=== PATIENT | female | born 1990 | race Caucasian/White ===

== ENCOUNTER 2017-04-21 00:57 | Inpatient (IN) | payer OTHER ==
[~2017-04-21] VITALS: Ht 162.6 cm; Wt 124.7 kg
[2017-04-21 03:30] VITALS: BP 138/86; PULSE 50; RESP 18; Ht 162.6 cm; Wt 124.7 kg
[2017-04-21] MEDS ORDERED: ONDANSETRON 4 MG INJ IV PRN ×2 (04:30→10:00)
[2017-04-21] MEDS: SOD CHLORIDE 0.45% 1,000 ML IV SCH ×2 (04:47→15:47)
[2017-04-21 06:50] LABS: ADD SCAN DIFF NO; BASOPHILS % 0.5 % (0.0-2.0); EOSINOPHILS # 0.3 10^3/ul (0.0-0.5); EOSINOPHILS % 3.7 % (0.0-7.0); HEMATOCRIT 37.5 % (37.0-47.0); HEMOGLOBIN 11.7 g/dl (12.0-16.0); LYMPHOCYTES # 1.7 10^3/ul (0.8-2.9); LYMPHOCYTES % 22.3 % (15.0-51.0); MEAN CORPUSCULAR HEMOGLOBIN 25.5 pg (29.0-33.0); MEAN CORPUSCULAR HGB CONC 31.2 g/dl (32.0-37.0); MEAN CORPUSCULAR VOLUME 81.9 fl (82.0-101.0); MEAN PLATELET VOLUME 10.5 fl (7.4-10.4); MONOCYTE # 0.5 10^3/ul (0.3-0.9); MONOCYTES % 6.7 % (0.0-11.0); NEUTROPHIL # 5.1 10^3/ul (1.6-7.5); NEUTROPHILS % 66.4 % (39.0-77.0); PLATELET COUNT 284 10^3/UL (140-415); RED BLOOD COUNT 4.58 10^6/ul (4.20-5.40); RED CELL DISTRIBUTION WIDTH 16.8 % (11.5-14.5); WHITE BLOOD COUNT 7.6 10^3/ul (4.8-10.8)
[2017-04-21 07:26] LABS: ALBUMIN 4.5 g/dl (3.3-4.9); ALBUMIN/GLOBULIN RATIO 1.55; BILIRUBIN,INDIRECT 1.1 mg/dl (0-1.1); BILIRUBIN,TOTAL 1.1 mg/dl (0.2-1.3); CALCIUM 8.9 mg/dl (8.4-10.2); CREATININE 0.73 mg/dl (0.44-1.00); POTASSIUM 3.6 mmol/L (3.5-5.1); TOTAL PROTEIN 7.4 g/dl (6.1-8.1)
[2017-04-21] MEDS ORDERED: BISACODYL 10 MG SUPP PR PRN (10:00)
[2017-04-21] MEDS ORDERED: DOCUSATE SODIUM 100 MG CAP PO PRN (10:00)
[2017-04-21] MEDS ORDERED: MAGNESIUM HYDROXIDE 30ML CUP PO PRN (10:00)
[2017-04-21] MEDS ORDERED: HYDROCODONE/APAP (5/325) TAB PO PRN ×2 (10:00)
[2017-04-21] MEDS ORDERED: ACETAMINOPHEN 325 MG TAB PO PRN (10:00)
[2017-04-21] MEDS ORDERED: ACETAMINOPHEN 650 MG SUPP PR PRN (10:00)
[2017-04-21] MEDS ORDERED: NACL 0.9% 3 ML SYG IV SCH (10:00)
--- NOTE | 2017-04-21 10:40 | HP ---
Date/Time of Note Date/Time of Note DATE: 04/21/17 TIME: 10:32 Assessment/Plan VTE Prophylaxis VTE Prophylaxis Intervention: SCD's Lines/Catheters IV C[facility]ter Type (from [facility]): Peripheral IV Urinary Cath still in place: No Assessment/Plan Chief Complaint/Hosp Course Impression and plan 1. Abdominal pain secondary to cholelithiasis and suspect choledocholithiasis. Will follow up on MRCP. Will start on IV fluids and keep n.p.o. for now. Will provide with analgesics. Antiemetics will also be provided for nausea/ vomiting. Surgeon to follow 2. Morbid obesity. Weight reduction was advised 3. Anemia. Follow-up on iron panel 4. Transaminitis secondary to #1. We will follow-up on MRCP or. Will get surgeon as well as design release engineer to follow DVT prophylaxis: SCDs Admission process 40 minutes Discussed plan of care with Dr. Ren Problems: HPI/ROS Admit Date/Time Admit Date/Time Apr 21, 2017 at 03:33 Hx of Present Illness This is a 27-year-old female with no reported past medical history came [facility] from outside facility secondary to reported abdominal pain. Patient did report that she been having abdominal pain roughly since April 16, 2017. She did report that she started to have intermittent pain then more notable on epigastric area. She did report that it would be intermittent and will go away and was able to tolerate oral intake. Progressively her pain got worse and subsequently went to [facility] on [facility], 2017. She did have initial labs there that did show her to have some anemia with hemoglobin of 12.4 hematocrit of 37.8. Additionally she also had a white blood cell count of 10.4. Additionally she also had some transaminitis with alk phos at 222 and AST of 399 and ALT at 662. Abdominal imaging also showed some cholelithiasis mild dilation of the common bile duct. Patient was brought to [facility] due to insurance issue. She did report having associated nonbilious nonbloody emesis starting since April 19, 2017 that would be intermittent. She reports her symptoms increased 1 day prior to her admission at [facility]. She denies any chest pain or shortness of breath or any sick contacts or any other associated symptoms. She will reports having pain on epigastric area as well as some nausea for out of 10 in intensity nonradiating. We will evaluate her for the aformentiond issues t ROS 12 point review of systems obtained and entirely negative except that mentioned in history of present illness PMH/Family/Social Past Medical History Medical History: no pertinent history Family History Significant Family History: other (Father: Diabetes, mother: Hypertension) Social History Alcohol Use: none Smoking Status: Never smoker Drug Use: none Exam/Review of Systems Vital Signs Vitals Vital Signs Date Time Temp Pulse Resp B/P Pulse Ox O2 Delivery O2 Flow Rate FiO2 04/21/17 03:30 97.6 50 18 138/86 98 Room Air Intake and Output 04/20/17 04/20/17 04/21/17 15:00 23:00 07:00 Intake Total 100 ml Balance 100 ml Exam Constitutional: alert, oriented, other (Morbidly obese) Psych: nl mood/affect Head: normocephalic Neck: supple, No jvd Respiratory: clear to auscultation, normal air movement Cardiovascular: regular rate and rhythm Gastrointestinal: soft, tender Neurological: FRUIT CANNER II-XII intact, nl mental status Skin: nl turgor Labs Result Diagram: 04/21/17 0458 04/21/17 0420 Medications Medications Current Medications Morphine Sulfate 2 mg 2 mg Q3H PRN IV pain management; Start 04/21/17 at 04:30 Sodium Chloride (1/2 NS) 1,000 ml @ 100 mls/hr Q10H IV Last administered on t 04:47; Admin Dose 100 MLS/HR; Start 04/21/17 at 04:30 Ondansetron HCl (Zofran Inj) 4 mg Q6H PRN IV NAUSEA AND/OR VOMITING; Start at 10:00 Acetaminophen (Tylenol Tab) 650 mg Q6H PRN PO PAIN LEVEL 1-3 OR FEVER; Start at 10:00 Acetaminophen (Tylenol Supp) 650 mg Q6H PRN [place] PAIN LEVEL 1-3 OR FEVER; Start 04/21/17 at 10:00 Acetaminophen/ Hydrocodone Bitart ([place] (5/325)) 1 tab Q6H PRN PO MODERATE PAIN LEVEL 4-6; Start 04/21/17 at 10:00 Acetaminophen/ Hydrocodone Bitart ([place] (5/325)) 2 tab Q6H PRN PO SEVERE PAIN LEVEL 7-10; Start 04/21/17 at 10:00 Docusate Sodium (Colace) 100 mg Q12H PRN PO CONSTIPATION; Start 04/21/17 at 10: 00 Magnesium Hydroxide (Milk Of Mag) 30 ml DAILY PRN PO CONSTIPATION; Start at 10:00 Bisacodyl (Dulcolax Supp) 10 mg DAILY PRN [place] CONSTIPATION; Start 04/21/17 at 10 :00 Pantoprazole (Protonix Iv) 40 mg DAILY@06 IV ; Start 04/22/17 at 06:00 BRENDA LAZAR Apr 21, 2017 10:40
--- NOTE | 2017-04-21 12:14 | HP ---
DATE OF ADMISSION: 04/21/2017 TYPE OF CONSULTATION: Surgical. REASON FOR CONSULTATION: Cholelithiasis and choledocholithiasis. HISTORY OF PRESENT ILLNESS: The patient is a 27-year-old female who is morbidly obese. She was see n at [place] yesterday because of abdominal pain. She was found to have gallstones with ultrasou nd showing dilatation of common bile duct. She had elevation of transaminases and alkaline phosphat ase at 222. She was transferred here for insurance reasons. I have been asked to see her in consul tation. An MRCP for this patient is pending. REVIEW OF SYSTEMS: HEAD, EYES, EARS, NOSE AND THROAT: Unremarkable. PULMONARY: No history of pneumonia, asthma or shortness of breath. CARDIAC: No history of chest pain, [place] or arrhythmia. ABDOMEN: Morbid obesity and as in the HPI. MEDICATIONS: None. ALLERGIES: NONE. PHYSICAL EXAMINATION: GENERAL: The patient is a 27-year-old female who is awake and alert, in no acute distress. HEAD, EARS, EYES, NOSE, THROAT: Within normal limits. Sclerae anicteric. LUNGS: Clear. HEART: Regular rhythm. ABDOMEN: Strikingly obese with slight tenderness in the epigastrium. LABORATORY DATA: The patient's hematocrit is 37.5 with a white count of 7600. Bilirubin is 1.1, T 295, ALT 628, alkaline phosphatase 202. IMPRESSION: This patient has cholelithiasis and likely choledocholithiasis. MRCP for this patient is pending as well as GI consultation. Further recommendations on this patient will be forthcoming based on the results of her further workup and clinical course. I will follow with you. Dictated By: ALFONSO GRAVES/MIKAELA Conf#: [id number] DID#: [id number]
[2017-04-21 14:22] LABS: ADD UMIC YES; UR ASCORBIC ACID NEGATIVE (NEGATIVE); UR BACTERIA FEW /HPF (NONE SEEN); UR BILIRUBIN (Dip) NEGATIVE (NEGATIVE); UR BLOOD (Dip) 1+ mg/dL (NEGATIVE); UR CLARITY CLEAR (CLEAR); UR COLOR YELLOW (YELLOW); UR GLUCOSE (Dip) NEGATIVE (NEGATIVE); UR KETONES (Dip) NEGATIVE (NEGATIVE); UR LEUKOCYTE ESTERASE (Dip) NEGATIVE Leu/ul (NEGATIVE); UR MUCUS FEW /HPF (NONE SEEN); UR NITRITE (Dip) NEGATIVE (NEGATIVE); UR RBC 1 /HPF (0-5); UR SPECIFIC GRAVITY (Dip) 1.017 (1.003-1.030); UR SQUAMOUS EPITHELIAL CELL FEW /HPF (FEW); UR TOTAL PROTEIN (Dip) NEGATIVE (NEGATIVE); UR UROBILINOGEN (Dip) NEGATIVE (NEGATIVE)
--- NOTE | 2017-04-21 16:48 | RADRPT ---
PROCEDURE: MRCP. CLINICAL INDICATION: Right upper quadrant pain. Suspected choledocholithiasis. TECHNIQUE: MRCP was performed on the a high-resolution, high Jewels field strength scanner. Patien t was examined without contrast. 3-D coronal rotating MIP images of the biliary tree are available for review. COMPARISON: None available FINDINGS: Gallbladder is remarkable for multiple large and small gallstones. There are no pericholecystic inf lammatory changes. There is no intrahepatic biliary ductal dilatation. Common bile duct is mildly d ilated measures up to 5 mm. There is abrupt tapering of the distal common bile duct. There are a fe w sub centimeter hypointensities in the distal CBD suggestive of choledocholithiasis. There is no st ricture or obstruction. The pancreatic duct, as visualized, is equally unremarkable. IMPRESSION: 1. Mild prominence of CBD measures up to 5 mm with a few sub centimeter choledocholithiasis. 2. Multiple large and small gallstones. No pericholecystic inflammatory changes. RPTAT: BB .Saw Cason MD, Date Time Electronically viewed and signed by .Saw Cason MD, on 04/21/2017 16:47 .O/
--- NOTE | 2017-04-21 19:41 | CONS ---
Date/Time of Note Date/Time of Note DATE: 04/21/17 TIME: 19:37 Assessment/Plan Assessment/Plan Additional Assessment/Plan Assessment: * Cholelithiasis/choledocholithiasis * Morbid obesity * Mild anemia Plan: * ERCP with stone removal. Patient informed of risks, benefits and alternatives. Agreeable to proceed. Consultation Date/Type/Reason Admit Date/Time Apr 21, 2017 at 03:33 Date of Consultation: Apr 21, 2017 Type of Consultation: GI Reason for Consultation Choledocholithiasis Hx of Present Illness 27-year-old morbidly obese female presented with complaints of epigastric right upper quadrant abdominal pain. Evaluation has disclosed evidence of cholelithiasis and choledocholithiasis. The patient has been seen by surgery and advised to undergo cholecystectomy. Patient will require ERCP to clear biliary tree prior to cholecystectomy. ERCP with sphincterotomy and stone removal was explained to the patient and her family including risks, benefits and alternatives. The patient is agreeable to proceed. Constitutional: improved, no complaints Eyes: no complaints ENT: no complaints Respiratory: no complaints Cardiovascular: no complaints Gastrointestinal: nausea, pain (Right upper quadrant) Genitourinary: no complaints Musculoskeletal: no complaints Skin: no complaints Neurologic: no complaints Endocrine: no complaints Lymphatic: no complaints Psychological: nl mood/affect Immunologic: no complaints Past Medical History Medical History: no pertinent history Past Surgical History Past Surgical Hx: no surgical history Family History Significant Family History: no pertinent family hx Social History Alcohol Use: none Smoking Status: Never smoker Drug Use: none Exam/Review of Systems Vital Signs Vitals Vital Signs Date Time Temp Pulse Resp B/P Pulse Ox O2 Delivery O2 Flow Rate FiO2 04/21/17 03:30 97.6 50 18 138/86 98 Room Air Intake and Output 04/20/17 04/20/17 04/21/17 15:00 23:00 07:00 Intake Total 100 ml Balance 100 ml Exam Constitutional: alert, obese (Morbidly obese), oriented, well developed Psych: nl mood/affect, no complaints Head: atraumatic, normocephalic Eyes: EOMI, PERRL, nl conjunctiva, nl lids, nl sclera ENMT: nl external ears & nose, nl lips & teeth, nl nasal mucosa & septum Neck: non-tender, supple Respiratory: clear to auscultation, normal air movement Cardiovascular: nl pulses, regular rate and rhythm Gastrointestinal: bowel sounds, distended, nl liver, spleen, soft, tender ( Right upper quadrant), No ascites, No hepatomegaly, No mass, No rebound or guarding Musculoskeletal: nl extremities to inspection Extremities: normal pulses Skin: nl turgor, No rash or lesions Lymph: nl lymph nodes Results Result Diagram: 04/21/17 0458 04/21/17 0420 Results 24 hrs Laboratory Tests Test 04/21/17 04:20 04/21/17 04:58 04/21/17 07:42 Sodium Level 139 Potassium Level 3.6 Chloride Level 103 Carbon Dioxide Level 28 Anion Gap 12 Blood Urea Nitrogen 9 Creatinine 0.73 Glucose Level 97 Calcium Level 8.9 Total Bilirubin 1.1 Direct Bilirubin 0.00 Indirect Bilirubin 1.1 Aspartate Amino Transf (AST/SGOT) 295 H Alanine Aminotransferase (ALT/SGPT) 628 H Alkaline Phosphatase 202 H Total Protein 7.4 Albumin 4.5 Globulin 2.90 Albumin/Globulin Ratio 1.55 White Blood Count 7.6 Red Blood Count 4.58 Hemoglobin 11.7 L Hematocrit 37.5 Mean Corpuscular Volume 81.9 L Mean Corpuscular Hemoglobin 25.5 L Mean Corpuscular Hemoglobin Concent 31.2 L Red Cell Distribution Width 16.8 H Platelet Count 284 Mean Platelet Volume 10.5 H Neutrophils % 66.4 Lymphocytes % 22.3 Monocytes % 6.7 Eosinophils % 3.7 Basophils % 0.5 Nucleated Red Blood Cells % 0.0 Neutrophils # 5.1 Lymphocytes # 1.7 Monocytes # 0.5 Eosinophils # 0.3 Basophils # 0.0 Nucleated Red Blood Cells # 0.0 Urine Color YELLOW Urine Clarity CLEAR Urine pH 5.0 Urine Specific [place] 1.017 Urine Ketones NEGATIVE Urine Nitrite NEGATIVE Urine Bilirubin NEGATIVE Urine Urobilinogen NEGATIVE Urine Leukocyte Esterase NEGATIVE Urine Microscopic RBC 1 Urine Microscopic WBC 9 H Urine Squamous Epithelial Cells FEW Urine Bacteria FEW A Urine Mucus FEW A Urine Hemoglobin 1+ H Urine Glucose NEGATIVE Urine Total Protein NEGATIVE Medications Medications Current Medications Morphine Sulfate 2 mg 2 mg Q3H PRN IV pain management; Start 04/21/17 at 04:30 Sodium Chloride (1/2 NS) 1,000 ml @ 100 mls/hr Q10H IV Last administered on t 15:47; Admin Dose 100 MLS/HR; Start 04/21/17 at 04:30 Ondansetron HCl (Zofran Inj) 4 mg Q6H PRN IV NAUSEA AND/OR VOMITING; Start at 10:00 Acetaminophen (Tylenol Tab) 650 mg Q6H PRN PO PAIN LEVEL 1-3 OR FEVER; Start at 10:00 Acetaminophen (Tylenol Supp) 650 mg Q6H PRN [place] PAIN LEVEL 1-3 OR FEVER; Start 04/21/17 at 10:00 Acetaminophen/ Hydrocodone Bitart ([place] (5/325)) 1 tab Q6H PRN PO MODERATE PAIN LEVEL 4-6; Start 04/21/17 at 10:00 Acetaminophen/ Hydrocodone Bitart ([place] (5/325)) 2 tab Q6H PRN PO SEVERE PAIN LEVEL 7-10; Start 04/21/17 at 10:00 Docusate Sodium (Colace) 100 mg Q12H PRN PO CONSTIPATION; Start 04/21/17 at 10: 00 Magnesium Hydroxide (Milk Of Mag) 30 ml DAILY PRN PO CONSTIPATION; Start at 10:00 Bisacodyl (Dulcolax Supp) 10 mg DAILY PRN [place] CONSTIPATION; Start 04/21/17 at 10 :00 Pantoprazole (Protonix Iv) 40 mg DAILY@06 IV ; Start 04/22/17 at 06:00 CAESAR LIANG MD Apr 21, 2017 19:41
[2017-04-21] MEDS ORDERED: INDOMETHACIN 50 MG SUPP PR ONE (20:00)
[2017-04-21 21:15] VITALS: BP 139/74; RESP 18
[2017-04-22] VITALS (14 sets, daily range): BP systolic 128–158; BP diastolic 54–89; PULSE 56–80; RESP 16–25
[2017-04-22] MEDS: SOD CHLORIDE 0.45% 1,000 ML IV SCH ×3 (02:04→14:19)
[2017-04-22] MEDS: PANTOPRAZOLE 40 MG INJ IV SCH (06:18)
[2017-04-22 06:20] LABS: ADD SCAN DIFF NO
[2017-04-22 06:27] LABS: BASOPHIL # 0.1 10^3/ul (0.0-0.1); BASOPHILS % 0.5 % (0.0-2.0); EOSINOPHILS # 0.4 10^3/ul (0.0-0.5); EOSINOPHILS % 3.7 % (0.0-7.0); HEMATOCRIT 37.2 % (37.0-47.0); HEMOGLOBIN 11.6 g/dl (12.0-16.0); LYMPHOCYTES # 2.4 10^3/ul (0.8-2.9); LYMPHOCYTES % 22.9 % (15.0-51.0); MEAN CORPUSCULAR HEMOGLOBIN 25.4 pg (29.0-33.0); MEAN CORPUSCULAR HGB CONC 31.2 g/dl (32.0-37.0); MEAN CORPUSCULAR VOLUME 81.4 fl (82.0-101.0); MEAN PLATELET VOLUME 10.7 fl (7.4-10.4); MONOCYTE # 0.7 10^3/ul (0.3-0.9); MONOCYTES % 6.6 % (0.0-11.0); NEUTROPHIL # 6.8 10^3/ul (1.6-7.5); NEUTROPHILS % 65.3 % (39.0-77.0); PLATELET COUNT 264 10^3/UL (140-415); RED BLOOD COUNT 4.57 10^6/ul (4.20-5.40); RED CELL DISTRIBUTION WIDTH 16.4 % (11.5-14.5); WHITE BLOOD COUNT 10.5 10^3/ul (4.8-10.8)
[2017-04-22] MEDS ORDERED: ROCURONIUM 50 MG INJ ONE (07:00)
[2017-04-22 07:01] LABS: ALBUMIN 4.2 g/dl (3.3-4.9); ALBUMIN/GLOBULIN RATIO 1.4; BILIRUBIN,INDIRECT 0.9 mg/dl (0-1.1); BILIRUBIN,TOTAL 0.9 mg/dl (0.2-1.3); CHOL/HDL RATIO 3.8 RATIO; CREATININE 0.62 mg/dl (0.44-1.00); MAGNESIUM 1.9 mg/dl (1.7-2.5); PHOSPHORUS 3.9 mg/dl (2.5-4.9); POTASSIUM 3.6 mmol/L (3.5-5.1); TOTAL PROTEIN 7.2 g/dl (6.1-8.1)
[2017-04-22 07:04] LABS: T3 UPTAKE 32.2 % (23.5-40.5)
[2017-04-22 07:18] LABS: THYROID STIMULATING HORMONE 2.35 MIU/L (0.465-4.680)
--- NOTE | 2017-04-22 16:19 | PN ---
DATE: 04/22/2017 Surgery progress note: The patient is scheduled for ERCP early this evening. PLAN: We will do completion cholecystectomy sometime tomorrow. I have discussed the procedure with the patient who has given informed consent. Dictated By: ALFONSO GRAVES/MIKAELA Conf#: [id number] DID#: [id number] MTDD
--- NOTE | 2017-04-22 16:32 | PN ---
Date/Time of Note Date/Time of Note DATE: 04/22/17 TIME: 16:21 Assessment/Plan VTE Prophylaxis VTE Prophylaxis Intervention: SCD's Lines/Catheters IV [facility] (from [facility] Peripheral IV Urinary Cath still in place: No Assessment/Plan Chief Complaint/Hosp Course Impression and plan 1. Abdominal pain secondary to cholelithiasis and choledocholithiasis. Continue IV fluids and keep n.p.o. for now. Will provide with analgesics. Antiemetics will also be provided for nausea/vomiting. Tentative plan for ERCP 2. Morbid obesity. Weight reduction was advised 3. Anemia. Follow-up on iron panel 4. Transaminitis secondary to #1. MRCP did show mild prominence of CBD measuring up to 5 mm as well as a few subcentimeter choledocholithiasis. There is also seen multiple large and small gallstones. DVT prophylaxis: SCDs Disposition and plan: Tentative plan for ERCP. We will follow-up Discussed plan of care with Dr. Ren Problems: Subjective 24 Hr Interval Summary Free Text/Dictation Reports less abdominal pain at this time Exam/Review of Systems Vital Signs Vitals Vital Signs Date Time Temp Pulse Resp B/P Pulse Ox O2 Delivery O2 Flow Rate FiO2 04/22/17 08:00 98.2 56 18 146/89 98 Room Air Intake and Output 04/21/17 04/21/17 04/22/17 15:00 23:00 07:00 Intake Total 700 ml 400 ml 1200 ml Output Total 200 ml Balance 700 ml 400 ml 1000 ml Exam Constitutional: alert, obese, oriented Psych: no complaints Head: normocephalic Neck: supple, No jvd Respiratory: clear to auscultation Cardiovascular: regular rate and rhythm Gastrointestinal: soft, tender Musculoskeletal: nl extremities to inspection Extremities: normal pulses Neurological: MANAGER INCOME TAX II-XII intact, nl mental status, nl speech Results Result Diagram: 04/22/17 0440 04/22/17 0440 Results 24 hrs Laboratory Tests Test 04/22/17 04:40 White Blood Count 10.5 # Red Blood Count 4.57 Hemoglobin 11.6 L Hematocrit 37.2 Mean Corpuscular Volume 81.4 L Mean Corpuscular Hemoglobin 25.4 L Mean Corpuscular Hemoglobin Concent 31.2 L Red Cell Distribution Width 16.4 H Platelet Count 264 Mean Platelet Volume 10.7 H Neutrophils % 65.3 Lymphocytes % 22.9 Monocytes % 6.6 Eosinophils % 3.7 Basophils % 0.5 Nucleated Red Blood Cells % 0.0 Neutrophils # 6.8 Lymphocytes # 2.4 Monocytes # 0.7 Eosinophils # 0.4 Basophils # 0.1 Nucleated Red Blood Cells # 0.0 Sodium Level 138 Potassium Level 3.6 Chloride Level 103 Carbon Dioxide Level 24 Anion Gap 15 Blood Urea Nitrogen 10 Creatinine 0.62 Glucose Level 67 #L Hemoglobin A1c 5.6 Calcium Level 9.0 Phosphorus Level 3.9 Magnesium Level 1.9 Total Bilirubin 0.9 Direct Bilirubin 0.00 Indirect Bilirubin 0.9 Aspartate Amino Transf (AST/SGOT) 114 H Alanine Aminotransferase (ALT/SGPT) 430 H Alkaline Phosphatase 185 H Total Protein 7.2 Albumin 4.2 Globulin 3.00 Albumin/Globulin Ratio 1.40 Triglycerides Level 132 Cholesterol Level 191 LDL Cholesterol, Calculated 115 HDL Cholesterol 50 Cholesterol/HDL Ratio 3.8 Thyroid Stimulating Hormone (TSH) 2.350 Free Thyroxine Index 3.38 Thyroxine (T4) 10.5 Triiodothyronine (T3) Uptake 32.2 Medications Medications Current Medications Morphine Sulfate 2 mg 2 mg Q3H PRN IV pain management; Start 04/21/17 at 04:30 Sodium Chloride (1/2 NS) 1,000 ml @ 100 mls/hr Q10H IV Last administered on 14:19; Admin Dose 100 MLS/HR; Start 04/21/17 at 04:30 Ondansetron HCl (Zofran Inj) 4 mg Q6H PRN IV NAUSEA AND/OR VOMITING; Start at 10:00 Acetaminophen (Tylenol Tab) 650 mg Q6H PRN PO PAIN LEVEL 1-3 OR FEVER; Start at 10:00 Acetaminophen (Tylenol Supp) 650 mg Q6H PRN [place] PAIN LEVEL 1-3 OR FEVER; Start 04/21/17 at 10:00 Acetaminophen/ Hydrocodone Bitart ([place] (5/325)) 1 tab Q6H PRN PO MODERATE PAIN LEVEL 4-6 Last administered on 04/22/17 06:30; Admin Dose 1 TAB; Start at 10:00 Acetaminophen/ Hydrocodone Bitart ([place] (5/325)) 2 tab Q6H PRN PO SEVERE PAIN LEVEL 7-10; Start 04/21/17 at 10:00 Docusate Sodium (Colace) 100 mg Q12H PRN PO CONSTIPATION; Start 04/21/17 at 10: 00 Magnesium Hydroxide (Milk Of Mag) 30 ml DAILY PRN PO CONSTIPATION; Start at 10:00 Bisacodyl (Dulcolax Supp) 10 mg DAILY PRN [place] CONSTIPATION; Start 04/21/17 at 10 :00 Pantoprazole (Protonix Iv) 40 mg DAILY@06 IV Last administered on 04/22/17t 06: 18; Admin Dose 40 MG; Start 04/22/17 at 06:00 BRENDA LAZAR Apr 22, 2017 16:31
--- NOTE | 2017-04-22 18:06 | RADRPT ---
PROCEDURE: XR Chest. CLINICAL INDICATION: Preoperative. TECHNIQUE: Single frontal view. COMPARISON: None. FINDINGS: The lungs are clear. The heart size is normal. There is no pleural effusion. There is no pneumothorax. IMPRESSION: 1. Normal chest radiograph. RPTAT: QQ .Torrey Lehman MD, Date Time Electronically viewed and signed by .Torrey Lehman MD, on 04/22/2017 18:06 .R/
[2017-04-22] MEDS ORDERED: IOHEXOL 300MG/ML 30 ML BTL ONE (18:51)
--- NOTE | 2017-04-22 18:55 | HPN ---
Date/Time of Note Date/Time of Note DATE: 04/22/17 TIME: 18:54 Interval H&P Admission Note Pt. seen H&P reviewed: No system changes CAESAR LIANG MD Apr 22, 2017 18:54
[2017-04-22] MEDS ORDERED: PROPOFOL 20 ML ONE (19:01)
[2017-04-22] MEDS ORDERED: SUCCINYLCHOLINE CHLORIDE 100 MG/5 ML SYG IV ONE (19:01)
[2017-04-22] MEDS ORDERED: LIDOCAINE 2% (SDV) 5 ML INJ ONE (19:01)
[2017-04-22] MEDS ORDERED: FENTAnyl 50 MCG/ML VIAL ONE (19:01)
[2017-04-22] MEDS ORDERED: MIDAZOLAM 1 MG/ML 2 ML INJ ONE (19:01)
[2017-04-22] MEDS ORDERED: ONDANSETRON 4 MG INJ ONE (19:34)
[2017-04-22] MEDS ORDERED: DEXAMETHASONE 4 MG/ML 1 ML INJ ONE (19:34)
[2017-04-22] MEDS ORDERED: METOCLOPRAMIDE 10 MG INJ ONE (19:34)
[2017-04-22] MEDS ORDERED: NEOSTIGMINE 3 MG/3 ML SYRINGE ONE ×2 (19:43)
[2017-04-22] MEDS ORDERED: GLYCOPYRROLATE 0.4 MG INJ ONE ×2 (19:43)
[2017-04-22] MEDS ORDERED: LABETALOL HCL 20MG INJ IV PRN (20:30)
[2017-04-22] MEDS ORDERED: OXYCODONE/ACETAMINOPHEN (5/325) TAB PO PRN ×2 (20:30)
[2017-04-22] MEDS ORDERED: FENTAnyl 50 MCG/ML VIAL IV PRN (20:30)
[2017-04-22] MEDS ORDERED: DIPHENHYDRAMINE 50 MG INJ IV PRN (20:30)
[2017-04-22] MEDS ORDERED: hydrALAzine 20 MG INJ IV PRN (20:30)
[2017-04-22] MEDS ORDERED: KETOROLAC 30 MG INJ IV ONE (20:30)
[2017-04-22] MEDS ORDERED: PROCHLORPERAZINE 10 MG INJ IV PRN (20:30)
[2017-04-22] MEDS ORDERED: HYDROmorphONE (0.2 MG/ML) 10ML SYG IV PRN (20:30)
[2017-04-22] MEDS ORDERED: ONDANSETRON 4 MG INJ IV PRN (20:30)
[2017-04-22] MEDS ORDERED: MEPERIDINE 25 MG INJ IV PRN (20:30)
--- NOTE | 2017-04-22 20:49 | RADRPT ---
PROCEDURE: ERCP CLINICAL INDICATION: Common bile duct stone TECHNIQUE: 6 intraoperative x-rays are submitted. 1.6 minutes of fluoroscopy time was utilized. COMPARISON: MRI of the abdomen of 04/21/2017 FINDINGS: There is opacification of the extrahepatic bile duct and central intrahepatic bile ducts as well as the cystic duct and gallbladder. There is cholelithiasis. There is the suggestion of small gallsto ne in the extrahepatic bile duct. Balloon is inflated in the extrahepatic bile duct and the duct is swept. On the final image no filling defect suggestive of retained calculus is seen in the mid and distal extrahepatic bile duct. IMPRESSION: Cholelithiasis. Cholelithiasis. Sphincterotomy, balloon inflated in the extrahepatic bile duct and d uct swept. Please refer to procedural report. RPTAT: HJES .Yovany Saldana MD, Date Time Electronically viewed and signed by .Yovany Saldana MD, on 04/22/2017 20:49 .S/
--- NOTE | 2017-04-22 23:53 | GILP ---
DATE OF PROCEDURE: 04/22/2017 DATE: 04/22/2017 NAME OF PROCEDURE: Endoscopic retrograde cholangiopancreatography with sphincterotomy and stone rem oval. SURGEON: Caesar Conn MD. PREMEDICATION: General anesthesia by anesthesiologist. INSTRUMENT USED: Olympus side viewing endoscope. TECHNIQUE: After informed consent, with the patient/relatives understanding the procedure, its indic ations, potential risks, and complications, including but not limited to: allergic reaction, bleedin g, perforation or infection, and after all pertinent questions were answered to the patient's satisf action, the patient/relatives signed witnessed informed consent. Following this, premedication was administered slowly IV push under careful cardiovascular and respi ratory monitoring with pulse oximetry, automatic blood pressure and patient monitor. Once the sedative effect was achieved the patient was place in the prone position in the radiology s pecial procedures suite; the side viewing panendoscope was introduced and advanced under visual cont rol. Careful examination of the upper gastrointestinal tract, both on insertion as well as withdrawal of the instrument disclosed the following findings: ESOPHAGUS: The mucosa of the entire esophagus appears within normal limits. There is no evidence o f esophagitis, varices, neoplasm, or stricture. No hiatal hernia identified. STOMACH: Upon entrance to the stomach air was insufflated, the gastric camacho distended normally. T he mucosa of the fundus, body, and antrum of the stomach was carefully examined both head-on and on retroflexion, and shows no abnormalities. There is no evidence of gastritis, ulcers, or neoplasm. PYLORUS: The pylorus appears patent and within normal limits, with no evidence of gastric outlet ob struction. DUODENUM: The duodenal mucosa was carefully examined in the duodenal bulb as well as the second por tion of the duodenum and appears unremarkable with no evidence of duodenitis, ulcer, or neoplasm. AMPULLA OF VATER: The ampulla was identified. It was cannulated without difficulty. The biliary tr ee appears slightly dilated at 12 mm and several small filling defects are noted floating in the com mon bile duct. At this point in the standard sphincterotomy was performed without difficulty and, f ollowing this, a balloon catheter was introduced and several sweeps of the biliary tree resulted in extraction of previously identified floating stones. No residual abnormalities are noted. No evide nce of complications present. IMPRESSION 1. Choledocholithiasis. 2. Post-sphincterotomy and post-stone removal. PLAN: The patient will be observed. Laparoscopic cholecystectomy as soon as possible is advisable. Dictated By: CAESAR CONN MS/MIKAELA Conf#: [id number] DID#: [id number] CC: CAESAR CONN; ELBERT BULL MD;*End*
[2017-04-23] VITALS (12 sets, daily range): BP systolic 118–145; BP diastolic 56–73; PULSE 56–77; RESP 16–18
[2017-04-23] MEDS: SOD CHLORIDE 0.45% 1,000 ML IV SCH ×4 (05:03→22:20)
[2017-04-23] MEDS: PANTOPRAZOLE 40 MG INJ IV SCH (05:04)
[2017-04-23 06:53] LABS: ADD SCAN DIFF NO
[2017-04-23 07:00] LABS: BASOPHILS % 0.2 % (0.0-2.0); HEMATOCRIT 38.8 % (37.0-47.0); HEMOGLOBIN 12.4 g/dl (12.0-16.0); LYMPHOCYTES # 1.3 10^3/ul (0.8-2.9); LYMPHOCYTES % 9.4 % (15.0-51.0); MEAN CORPUSCULAR HEMOGLOBIN 25.5 pg (29.0-33.0); MEAN CORPUSCULAR VOLUME 79.7 fl (82.0-101.0); MEAN PLATELET VOLUME 10.6 fl (7.4-10.4); MONOCYTE # 0.2 10^3/ul (0.3-0.9); MONOCYTES % 1.4 % (0.0-11.0); NEUTROPHIL # 11.8 10^3/ul (1.6-7.5); NEUTROPHILS % 87.7 % (39.0-77.0); PLATELET COUNT 304 10^3/UL (140-415); RED BLOOD COUNT 4.87 10^6/ul (4.20-5.40); RED CELL DISTRIBUTION WIDTH 15.8 % (11.5-14.5); WHITE BLOOD COUNT 13.5 10^3/ul (4.8-10.8)
[2017-04-23] MEDS ORDERED: NEOSTIGMINE 3 MG/3 ML SYRINGE ONE (07:00)
[2017-04-23] MEDS ORDERED: ACETAMINOPHEN 1000 MG/100 ML IVPB ONE (07:00)
[2017-04-23] MEDS ORDERED: GLYCOPYRROLATE 0.4 MG INJ ONE (07:00)
[2017-04-23 08:57] LABS: ALBUMIN 4.9 g/dl (3.3-4.9); ALBUMIN/GLOBULIN RATIO 1.48; BILIRUBIN,INDIRECT 0.6 mg/dl (0-1.1); BILIRUBIN,TOTAL 0.6 mg/dl (0.2-1.3); CALCIUM 9.2 mg/dl (8.4-10.2); CREATININE 0.66 mg/dl (0.44-1.00); POTASSIUM 4.2 mmol/L (3.5-5.1); TOTAL PROTEIN 8.2 g/dl (6.1-8.1)
[2017-04-23] MEDS ORDERED: HYDROmorphONE (0.2 MG/ML) 10ML SYG IV PRN ×3 (10:00)
[2017-04-23] MEDS ORDERED: LABETALOL HCL 20MG INJ IV PRN (10:00)
[2017-04-23] MEDS ORDERED: EPHEDrine SULFATE 50 MG/5 ML SYG IV PRN (10:00)
[2017-04-23] MEDS ORDERED: ONDANSETRON 4 MG INJ IV PRN ×2 (10:00→11:30)
[2017-04-23] MEDS ORDERED: PROPOFOL 20 ML ONE (10:00)
[2017-04-23] MEDS ORDERED: hydrALAzine 20 MG INJ IV PRN (10:00)
[2017-04-23] MEDS ORDERED: DIPHENHYDRAMINE 50 MG INJ IV PRN (10:00)
[2017-04-23] MEDS ORDERED: MEPERIDINE 25 MG INJ IV PRN (10:00)
[2017-04-23] MEDS ORDERED: OXYCODONE/ACETAMINOPHEN (5/325) TAB PO PRN ×4 (10:00→11:30)
[2017-04-23] MEDS ORDERED: FENTAnyl 50 MCG/ML VIAL IV PRN ×3 (10:00)
[2017-04-23] MEDS ORDERED: LIDOCAINE 2% (SDV) 5 ML INJ ONE (10:00)
[2017-04-23] MEDS ORDERED: BUPIVACAINE 0.25%/EPI (SDV) 30 ML INJ ONE (10:09)
[2017-04-23] MEDS ORDERED: CEFAZOLIN 1 GM INJ ONE (10:37)
[2017-04-23] MEDS ORDERED: DEXAMETHASONE 4 MG/ML 1 ML INJ ONE (10:38)
[2017-04-23] MEDS ORDERED: ONDANSETRON 4 MG INJ ONE (10:39)
--- NOTE | 2017-04-23 10:50 | PN ---
Date/Time of Note Date/Time of Note DATE: 04/23/17 TIME: 10:43 Assessment/Plan VTE Prophylaxis VTE Prophylaxis Intervention: SCD's Lines/Catheters IV [facility] (from [facility]): Peripheral IV Urinary Cath still in place: No Assessment/Plan Chief Complaint/Hosp Course Impression and plan 1. Abdominal pain secondary to cholelithiasis and choledocholithiasis. Continue IV fluids and keep n.p.o. for now. Will provide with analgesics. Antiemetics will also be provided for nausea/vomiting. s/p ERCP: Post- sphincterotomy and post-stone removal. patient for surgical intervention 2. Morbid obesity. Weight reduction was advised 3. Anemia. Follow-up on iron panel 4. Transaminitis secondary to #1. MRCP did show mild prominence of CBD measuring up to 5 mm as well as a few subcentimeter choledocholithiasis. There is also seen multiple large and small gallstones. DVT prophylaxis: SCDs Disposition and plan: plan for cholecystectomy. will follow up Discussed plan of care with Dr. Ren Problems: Subjective 24 Hr Interval Summary Free Text/Dictation patient for surgical intervention Exam/Review of Systems Vital Signs Vitals Vital Signs Date Time Temp Pulse Resp B/P Pulse Ox O2 Delivery O2 Flow Rate FiO2 04/23/17 08:17 97.9 72 16 126/61 97 04/22/17 20:53 Room Air 04/22/17 20:27 6.0 Intake and Output 04/22/17 04/22/17 04/23/17 15:00 23:00 07:00 Intake Total 700 ml 300 ml 700 ml Output Total 500 ml Balance 700 ml 300 ml 200 ml Exam patient for surgical intervention Results Result Diagram: 04/23/17 0510 04/23/17 0510 Results 24 hrs Laboratory Tests Test 04/23/17 05:10 White Blood Count 13.5 #H Red Blood Count 4.87 Hemoglobin 12.4 Hematocrit 38.8 Mean Corpuscular Volume 79.7 L Mean Corpuscular Hemoglobin 25.5 L Mean Corpuscular Hemoglobin Concent 32.0 Red Cell Distribution Width 15.8 H Platelet Count 304 Mean Platelet Volume 10.6 H Neutrophils % 87.7 H Lymphocytes % 9.4 L Monocytes % 1.4 Eosinophils % 0.0 Basophils % 0.2 Nucleated Red Blood Cells % 0.0 Neutrophils # 11.8 H Lymphocytes # 1.3 Monocytes # 0.2 L Eosinophils # 0.0 Basophils # 0.0 Nucleated Red Blood Cells # 0.0 Sodium Level 135 Potassium Level 4.2 Chloride Level 101 Carbon Dioxide Level 20 L Anion Gap 18 H Blood Urea Nitrogen 10 Creatinine 0.66 Glucose Level 83 Calcium Level 9.2 Total Bilirubin 0.6 Direct Bilirubin 0.00 Indirect Bilirubin 0.6 Aspartate Amino Transf (AST/SGOT) 71 H Alanine Aminotransferase (ALT/SGPT) 324 H Alkaline Phosphatase 189 H Total Protein 8.2 H Albumin 4.9 Globulin 3.30 H Albumin/Globulin Ratio 1.48 Medications Medications Current Medications Morphine Sulfate 2 mg 2 mg Q3H PRN IV pain management; Start 04/21/17 at 04:30 Sodium Chloride (1/2 NS) 1,000 ml @ 100 mls/hr Q10H IV Last administered on 08:16; Admin Dose 100 MLS/HR; Start 04/21/17 at 04:30 Ondansetron HCl (Zofran Inj) 4 mg Q6H PRN IV NAUSEA AND/OR VOMITING; Start at 10:00 Acetaminophen (Tylenol Tab) 650 mg Q6H PRN PO PAIN LEVEL 1-3 OR FEVER; Start at 10:00 Acetaminophen (Tylenol Supp) 650 mg Q6H PRN [place] PAIN LEVEL 1-3 OR FEVER; Start 04/21/17 at 10:00 Acetaminophen/ Hydrocodone Bitart ([place] (5/325)) 1 tab Q6H PRN PO MODERATE PAIN LEVEL 4-6 Last administered on 04/22/17 06:30; Admin Dose 1 TAB; Start at 10:00 Acetaminophen/ Hydrocodone Bitart ([place] (5/325)) 2 tab Q6H PRN PO SEVERE PAIN LEVEL 7-10; Start 04/21/17 at 10:00 Docusate Sodium (Colace) 100 mg Q12H PRN PO CONSTIPATION; Start 04/21/17 at 10: 00 Magnesium Hydroxide (Milk Of Mag) 30 ml DAILY PRN PO CONSTIPATION; Start at 10:00 Bisacodyl (Dulcolax Supp) 10 mg DAILY PRN [place] CONSTIPATION; Start 04/21/17 at 10 :00 Pantoprazole (Protonix Iv) 40 mg DAILY@06 IV Last administered on 04/23/17t 05: 04; Admin Dose 40 MG; Start 04/22/17 at 06:00 BRENDA LAZAR Apr 23, 2017 10:50
[2017-04-23 11:04] LABS: IRON 62 ug/dl (35-150)
[2017-04-23] MEDS ORDERED: LABETALOL HCL 20MG INJ ONE (11:10)
[2017-04-23 11:13] LABS: TOTAL IRON BINDING CAPACITY 400 ug/dl (241-421)
[2017-04-23] MEDS ORDERED: morphine 2 MG INJ IV PRN (11:30)
--- NOTE | 2017-04-23 11:36 | OPR ---
DATE OF OPERATION: 04/23/2017 PREOPERATIVE DIAGNOSIS: Cholecystitis and cholelithiasis. POSTOPERATIVE DIAGNOSIS: Cholecystitis and cholelithiasis. PROCEDURE PERFORMED: Laparoscopic cholecystectomy. SURGEON: Alfonso Cook MD ANESTHESIA: General. ANESTHESIOLOGIST: Sander Moe MD DESCRIPTION OF PROCEDURE: The patient is 1 day status post ERCP with stone extraction. She is here for completion cholecystectomy. She has multiple gallstones. After satisfactory general anesthesi a was achieved, the abdomen was prepped and draped in the usual fashion. The abdomen was insufflate d with carbon dioxide through an umbilical Veress needle to 15 mmHg pressure. The Veress needle was removed and the umbilical incision extended to 5 mm, through which a 5 mm trocar was placed. A 5 m m 0-degree lens was placed. Laparoscopy showed an acutely inflamed, dilated gallbladder as well as a dilated common bile duct. Under direct visualization, a 12 mm epigastric trocar was placed as wel l as two 5 mm right lateral abdominal trocars. The dome of the gallbladder was grasped and retracted superiorly. Hortencia's pouch was inferiorly. The hepatoduodenal ligament was carefully dissected. The cystic duct was then triply hemoclipped a nd divided high at the junction of the gallbladder and the cystic duct well away from the common jay t. The cystic artery was identified immediately posteriorly. This was triply hemoclipped and divid ed between clips. The gallbladder was then dissected from below using electrocautery dissection and placed fully intact into an Endo Catch, removed via the epigastric route. Hemostasis of the liver bed was total and irrigant returned clear. The fascia of the 12 mm port site was closed with 2 sutures of #1 Vicryl with the assistance of a Jessica mauricioer-Val device. The abdomen was then desufflated and the trocars were removed. The skin punc tures were infiltrated with 30 mL of 0.25% Marcaine with epinephrine and closed with viktor. Opera tive blood loss less than 20 mL. Sponge and needle counts reported as correct x2. The patient jennifer rated the procedure well and without incident or complication. Dictated By: ALFONSO GRAVES/NTS Conf#: [id number] DID#: [id number]
--- NOTE | 2017-04-23 13:42 | PN ---
Date/Time of Note Date/Time of Note DATE: 04/23/17 TIME: 13:36 Assessment/Plan VTE Prophylaxis VTE Prophylaxis Intervention: ambulation Lines/Catheters IV Catheter Type (from [facility]): Peripheral IV Urinary Cath still in place: No Assessment/Plan Assessment/Plan Assessment * Cholecystolithiasis with choledocholithiasis S/P Laparoscopic cholecystectomy S/P ERCP sphincterotomy removal of common bile duct stones Plan * continue present management * may ambulate as needed * further orders will depend on clinical course * Case was discussed with Dr Conn Subjective 24 Hr Interval Summary Free Text/Dictation * Course reviewed with RN * patient seen and examined * S/P laparoscopic cholecystectomy * S/P sphincterotomy removal of cbd stones Exam/Review of Systems Vital Signs Vitals Vital Signs Date Time Temp Pulse Resp B/P Pulse Ox O2 Delivery O2 Flow Rate FiO2 04/23/17 11:46 72 18 135/62 95 Nasal Cannula 2.0 04/23/17 11:17 98.2 Intake and Output 04/22/17 04/22/17 04/23/17 15:00 23:00 07:00 Intake Total 700 ml 300 ml 700 ml Output Total 500 ml Balance 700 ml 300 ml 200 ml Exam Constitutional: alert, well developed Head: atraumatic, normocephalic Neck: non-tender, supple Respiratory: clear to auscultation, normal air movement Cardiovascular: nl pulses, regular rate and rhythm Gastrointestinal: bowel sounds, nl liver, spleen, non-tender, soft Musculoskeletal: nl extremities to inspection, nl gait and stance Extremities: normal pulses Neurological: nl mental status, nl speech Skin: nl turgor, No rash or lesions Results Result Diagram: 04/23/17 0510 04/23/17 0510 Results 24 hrs Laboratory Tests Test 04/23/17 05:10 White Blood Count 13.5 #H Red Blood Count 4.87 Hemoglobin 12.4 Hematocrit 38.8 Mean Corpuscular Volume 79.7 L Mean Corpuscular Hemoglobin 25.5 L Mean Corpuscular Hemoglobin Concent 32.0 Red Cell Distribution Width 15.8 H Platelet Count 304 Mean Platelet Volume 10.6 H Neutrophils % 87.7 H Lymphocytes % 9.4 L Monocytes % 1.4 Eosinophils % 0.0 Basophils % 0.2 Nucleated Red Blood Cells % 0.0 Neutrophils # 11.8 H Lymphocytes # 1.3 Monocytes # 0.2 L Eosinophils # 0.0 Basophils # 0.0 Nucleated Red Blood Cells # 0.0 Sodium Level 135 Potassium Level 4.2 Chloride Level 101 Carbon Dioxide Level 20 L Anion Gap 18 H Blood Urea Nitrogen 10 Creatinine 0.66 Glucose Level 83 Calcium Level 9.2 Iron Level 62 Total Iron Binding Capacity 400 Percent Iron Saturation 16 L Total Bilirubin 0.6 Direct Bilirubin 0.00 Indirect Bilirubin 0.6 Aspartate Amino Transf (AST/SGOT) 71 H Alanine Aminotransferase (ALT/SGPT) 324 H Alkaline Phosphatase 189 H Total Protein 8.2 H Albumin 4.9 Globulin 3.30 H Albumin/Globulin Ratio 1.48 Medications Medications Current Medications Morphine Sulfate 2 mg 2 mg Q3H PRN IV pain management; Start 04/21/17 at 04:30 Sodium Chloride (1/2 NS) 1,000 ml @ 100 mls/hr Q10H IV Last administered on 08:16; Admin Dose 100 MLS/HR; Start 04/21/17 at 04:30 Ondansetron HCl (Zofran Inj) 4 mg Q6H PRN IV NAUSEA AND/OR VOMITING; Start at 10:00 Acetaminophen (Tylenol Tab) 650 mg Q6H PRN PO PAIN LEVEL 1-3 OR FEVER; Start at 10:00 Acetaminophen (Tylenol Supp) 650 mg Q6H PRN [place] PAIN LEVEL 1-3 OR FEVER; Start 04/21/17 at 10:00 Acetaminophen/ Hydrocodone Bitart ([place] (5/325)) 1 tab Q6H PRN PO MODERATE PAIN LEVEL 4-6 Last administered on 04/22/17 06:30; Admin Dose 1 TAB; Start at 10:00 Acetaminophen/ Hydrocodone Bitart ([place] (5/325)) 2 tab Q6H PRN PO SEVERE PAIN LEVEL 7-10; Start 04/21/17 at 10:00 Docusate Sodium (Colace) 100 mg Q12H PRN PO CONSTIPATION; Start 04/21/17 at 10: 00 Magnesium Hydroxide (Milk Of Mag) 30 ml DAILY PRN PO CONSTIPATION; Start at 10:00 Bisacodyl (Dulcolax Supp) 10 mg DAILY PRN [place] CONSTIPATION; Start 04/21/17 at 10 :00 Pantoprazole (Protonix Iv) 40 mg DAILY@06 IV Last administered on 04/23/17t 05: 04; Admin Dose 40 MG; Start 04/22/17 at 06:00 Oxycodone/ Acetaminophen (Percocet (5/ 325)) 1 tab Q4H PRN PO MILD PAIN (1-3); Start 04/23/17 at 11:30 Oxycodone/ Acetaminophen (Percocet (5/ 325)) 2 tab Q4H PRN PO MODERATE PAIN (4- 6); Start 04/23/17 at 11:30 Morphine Sulfate (morphine) 2 mg ONCE PRN IV SEVERE PAIN LEVEL 7-10; Start at 11:30; Stop 04/24/17 at 23:00 Ondansetron HCl (Zofran Inj) 4 mg Q6H PRN IV NAUSEA; Start 04/23/17 at 11:30 JESUSITA CASTILLO NP Apr 23, 2017 13:42
[2017-04-23] MEDS: morphine 2 MG INJ IV PRN ×3 (14:18→22:19)
[2017-04-24] MEDS: PANTOPRAZOLE 40 MG INJ IV SCH (05:07)
[2017-04-24 05:36] LABS: ADD SCAN DIFF NO
[2017-04-24 05:47] LABS: BASOPHILS % 0.1 % (0.0-2.0); HEMATOCRIT 37.9 % (37.0-47.0); LYMPHOCYTES # 1.9 10^3/ul (0.8-2.9); MEAN CORPUSCULAR HEMOGLOBIN 25.8 pg (29.0-33.0); MEAN CORPUSCULAR HGB CONC 31.7 g/dl (32.0-37.0); MEAN CORPUSCULAR VOLUME 81.3 fl (82.0-101.0); MEAN PLATELET VOLUME 10.5 fl (7.4-10.4); MONOCYTE # 1.1 10^3/ul (0.3-0.9); MONOCYTES % 7.2 % (0.0-11.0); NEUTROPHIL # 12.3 10^3/ul (1.6-7.5); NEUTROPHILS % 79.5 % (39.0-77.0); PLATELET COUNT 335 10^3/UL (140-415); RED BLOOD COUNT 4.66 10^6/ul (4.20-5.40); WHITE BLOOD COUNT 15.5 10^3/ul (4.8-10.8)
[2017-04-24 06:08] LABS: ALBUMIN 4.7 g/dl (3.3-4.9); ALBUMIN/GLOBULIN RATIO 1.34; BILIRUBIN,INDIRECT 0.6 mg/dl (0-1.1); BILIRUBIN,TOTAL 0.6 mg/dl (0.2-1.3); CALCIUM 9.7 mg/dl (8.4-10.2); CREATININE 0.71 mg/dl (0.44-1.00); POTASSIUM 4.4 mmol/L (3.5-5.1); TOTAL PROTEIN 8.2 g/dl (6.1-8.1)
[2017-04-24] MEDS: morphine 2 MG INJ IV PRN ×2 (07:26→15:26)
[2017-04-24] MEDS: SOD CHLORIDE 0.45% 1,000 ML IV SCH (07:27)
[2017-04-24 09:11] VITALS: BP 119/60; RESP 17
[2017-04-24] MEDS ORDERED: DOCU-144 PO (09:27)
[2017-04-24] MEDS ORDERED: HYDR-3498 PO (09:27)
--- NOTE | 2017-04-24 09:29 | PDOCDIS ---
Discharge Instructions DIAGNOSIS Discharge Diagnosis 1. choledocholithiasis 2. cholecystitis CONDITION Patient Condition: Stable HOME CARE INSTRUCTIONS: Diet Instructions: Low Fat /CholesterolSpecial Diet: 1800 calorie FOLLOW UP/APPOINTMENTS Follow-up Plan 1. Follow up with Dr. Jg Cook in one week BRENDA LAZAR Apr 24, 2017 09:29
--- NOTE | 2017-04-24 10:12 | RADRPT ---
Vent Rate: 62 bpm RR Interval: 0 msec PA Interval: 164 msec QRS Duration: 88 msec QT Interval: 460 msec QTC Interval: 466 msec P-R-T [place]: 42 - 60 - 43 degrees Normal sinus rhythm Normal ECG Electronically Signed By: Darian Talamantes [id number]
--- NOTE | 2017-04-24 10:57 | PN ---
Date/Time of Note Date/Time of Note DATE: 04/24/17 TIME: 10:53 Assessment/Plan VTE Prophylaxis VTE Prophylaxis Intervention: ambulation Lines/Catheters [facility]from [facility] Peripheral IV Urinary Cath still in place: No Assessment/Plan Assessment/Plan Assessment * Cholecystolithiasis with choledocholithiasis S/P Laparoscopic cholecystectomy S/P ERCP sphincterotomy removal of common bile duct stones Plan * Stable for outpatient management * Case was discussed with Dr Conn Subjective 24 Hr Interval Summary Free Text/Dictation * Course reviewed with RN * Patient seen and examined * Denies abdominal pain * Tolerating diet Exam/Review of Systems Vital Signs Vitals Vital Signs Date Time Temp Pulse Resp B/P Pulse Ox O2 Delivery O2 Flow Rate FiO2 04/24/17 09:11 97.8 60 17 119/60 97 04/23/17 13:45 Nasal Cannula 04/23/17 12:06 2.0 Intake and Output 04/23/17 04/23/17 04/24/17 15:00 23:00 07:00 Intake Total 500 ml 3550 ml 1040 ml Output Total 10 ml 1000 ml Balance 490 ml 3550 ml 40 ml Exam Constitutional: alert, oriented Head: atraumatic, normocephalic Eyes: nl conjunctiva Neck: non-tender, supple Respiratory: clear to auscultation, normal air movement Cardiovascular: nl pulses, regular rate and rhythm Gastrointestinal: nl liver, spleen, non-tender, soft Musculoskeletal: nl extremities to inspection, nl gait and stance Extremities: normal pulses Neurological: nl speech, nl strength Skin: nl turgor, No rash or lesions Results Result Diagram: 04/24/17 0505 04/24/17 0505 Results 24 hrs Laboratory Tests Test 04/24/17 05:05 White Blood Count 15.5 H Red Blood Count 4.66 Hemoglobin 12.0 Hematocrit 37.9 Mean Corpuscular Volume 81.3 L Mean Corpuscular Hemoglobin 25.8 L Mean Corpuscular Hemoglobin Concent 31.7 L Red Cell Distribution Width 17.0 H Platelet Count 335 Mean Platelet Volume 10.5 H Neutrophils % 79.5 H Lymphocytes % 12.0 L Monocytes % 7.2 Eosinophils % 0.0 Basophils % 0.1 Nucleated Red Blood Cells % 0.0 Neutrophils # 12.3 H Lymphocytes # 1.9 Monocytes # 1.1 H Eosinophils # 0.0 Basophils # 0.0 Nucleated Red Blood Cells # 0.0 Sodium Level 137 Potassium Level 4.4 Chloride Level 104 Carbon Dioxide Level 21 Anion Gap 16 Blood Urea Nitrogen 13 Creatinine 0.71 Glucose Level 116 Calcium Level 9.7 Total Bilirubin 0.6 Direct Bilirubin 0.00 Indirect Bilirubin 0.6 Aspartate Amino Transf (AST/SGOT) 103 H Alanine Aminotransferase (ALT/SGPT) 229 H Alkaline Phosphatase 166 H Total Protein 8.2 H Albumin 4.7 Globulin 3.50 H Albumin/Globulin Ratio 1.34 Medications Medications Current Medications Morphine Sulfate 2 mg 2 mg Q3H PRN IV pain management Last administered on 04/24 07:26; Admin Dose 2 MG; Start 04/21/17 at 04:30 Sodium Chloride (1/2 NS) 1,000 ml @ 100 mls/hr Q10H IV Last administered on 07:27; Admin Dose 100 MLS/HR; Start 04/21/17 at 04:30 Acetaminophen (Tylenol Tab) 650 mg Q6H PRN PO PAIN LEVEL 1-3 OR FEVER; Start at 10:00 Acetaminophen (Tylenol Supp) 650 mg Q6H PRN [place] PAIN LEVEL 1-3 OR FEVER; Start 04/21/17 at 10:00 Acetaminophen/ Hydrocodone Bitart ([place] (5/325)) 1 tab Q6H PRN PO MODERATE PAIN LEVEL 4-6 Last administered on 04/22/17 06:30; Admin Dose 1 TAB; Start at 10:00 Acetaminophen/ Hydrocodone Bitart ([place] (5/325)) 2 tab Q6H PRN PO SEVERE PAIN LEVEL 7-10; Start 04/21/17 at 10:00 Docusate Sodium (Colace) 100 mg Q12H PRN PO CONSTIPATION; Start 04/21/17 at 10: 00 Magnesium Hydroxide (Milk Of Mag) 30 ml DAILY PRN PO CONSTIPATION; Start at 10:00 Bisacodyl (Dulcolax Supp) 10 mg DAILY PRN [place] CONSTIPATION; Start 04/21/17 at 10 :00 Pantoprazole (Protonix Iv) 40 mg DAILY@06 IV Last administered on 04/24/17 05: 07; Admin Dose 40 MG; Start 04/22/17 at 06:00 Oxycodone/ Acetaminophen (Percocet (5/ 325)) 1 tab Q4H PRN PO MILD PAIN (1-3); Start 04/23/17 at 11:30 Oxycodone/ Acetaminophen (Percocet (5/ 325)) 2 tab Q4H PRN PO MODERATE PAIN (4- 6); Start 04/23/17 at 11:30 Morphine Sulfate (morphine) 2 mg ONCE PRN IV SEVERE PAIN LEVEL 7-10; Start at 11:30; Stop 04/24/17 at 23:00 Ondansetron HCl (Zofran Inj) 4 mg Q6H PRN IV NAUSEA; Start 04/23/17 at 11:30 JESUSITA CASTILLO NP Apr 24, 2017 10:57
--- NOTE | 2017-04-24 13:58 | PN ---
DATE: 04/24/2017 POSTOPERATIVE DAY #1: The patient is markedly symptomatically improved and has been afebrile throug hout. She feels well and is tolerating a general diet. Her abdominal examination is benign. LABORATORY DATA: Hematocrit is 37.9 with a white count of 15,500. Bilirubin is 0.6, AST is down to 103, ALT down to 229, alkaline phosphatase down to 186. IMPRESSION: Excellent postoperative recovery. PLAN: The patient is cleared for discharge home today with p.o. pain medications and antibiotics. I will see the patient in the office in 10 to 14 days for skin staple removal. Dictated By: ALFONSO GRAVES/NTS Conf#: [id number] DID#: [id number] CC: ELBERT BULL MD;*End*
[2017-04-24] MEDS ORDERED: CEPH-443 PO (15:12)
--- NOTE | 2017-04-24 15:18 | DS ---
Date/Time of Note Date/Time of Note DATE: 04/24/17 TIME: 15:15 Discharge Summary Admission/Discharge Info Admit Date/Time Apr 21, 2017 at 03:33 Discharge Date/Time Discharge Diagnosis 1. choledocholithiasis 2. cholecystitis Patient Condition: Stable Hx of Present Illness This is a 27-year-old female with no reported past medical history came [facility] from outside facility secondary to reported abdominal pain. Patient did report that she been having abdominal pain roughly since April 16, 2017. She did report that she started to have intermittent pain then more notable on epigastric area. She did report that it would be intermittent and will go away and was able to tolerate oral intake. Progressively her pain got worse and subsequently went to [facility] on April 20, 2017. She did have initial labs there that did show her to have some anemia with hemoglobin of 12.4 hematocrit of 37.8. Additionally she also had a white blood cell count of 10.4. Additionally she also had some transaminitis with alk phos at 222 and AST of 399 and ALT at 662. Abdominal imaging also showed some cholelithiasis mild dilation of the common bile duct. Patient was brought to [facility] due to insurance issue. She did report having associated nonbilious nonbloody emesis starting since April 19, 2017 that would be intermittent. She reports her symptoms increased 1 day prior to her admission at [facility]. She denies any chest pain or shortness of breath or any sick contacts or any other associated symptoms. She will reports having pain on epigastric area as well as some nausea for out of 10 in intensity nonradiating. We will evaluate her for the aformentiond issues Hospital Course This is a 27-year-old female with no reported past medical history came to [facility] from outside hospital due to reports of abdominal pain. Patient is found to have choledocholithiasis and also possible cholecystitis. She was seen and did undergo ERCP with stone removal. She was initially placed on IV fluids and kept n.p.o. We did provide with appropriate analgesics. She did have good response. After ERCP she did undergo laparoscopic cholecystectomy with good response as well. She did report less pain. She did tolerate oral intake well. She was otherwise optimized medically. She was advised weight reduction for her morbid obesity. She was instructed to follow-up with surgeon within a week. The plan of care was discussed with the patient and patient did verbalize her understanding. On the day of discharge patient was in stable condition Discussed plan of care with Dr. Ren Discharge process time greater than 30 Home Meds Active Scripts Cephalexin* (Keflex*) 500 Mg Capsule, 500 MG PO Q8, #21 CAP Prov:RAIN LAZARNELL 04/24/17 Docusate Sodium* (Colace*) 100 Mg Capsule, 100 MG PO BID, #60 CAP Prov:IZZYSHIVABRENDA 04/24/17 Hydrocodone Bit-Acetaminophen (Hydrocodone Bit-APAP) 5-325MG Tablet, 2 TAB PO Q6H Y for SEVERE PAIN LEVEL 7-10, #30 TAB Prov:IZZYLUKASMaritzaBRENDA 04/24/17 Follow-up Plan CONDITION Patient Condition: Stable HOME CARE INSTRUCTIONS: Diet Instructions: Low Fat /CholesterolSpecial Diet: 1800 calorie FOLLOW UP/APPOINTMENTS Follow-up Plan 1. Follow up with Dr. Jg Cook in one week Primary Care Provider Not On Staff Doctor Pending Labs Laboratory Tests Test 04/24/17 05:05 White Blood Count 15.510^3/ul (4.8-10.8) Red Blood Count 4.6610^6/ul (4.20-5.40) Hemoglobin 12.0g/dl (12.0-16.0) Hematocrit 37.9% (37.0-47.0) Mean Corpuscular Volume 81.3fl (82.0-101.0) Mean Corpuscular Hemoglobin 25.8pg (29.0-33.0) Mean Corpuscular Hemoglobin Concent 31.7g/dl (32.0-37.0) Red Cell Distribution Width 17.0% (11.5-14.5) Platelet Count 70803^3/UL (140-415) Mean Platelet Volume 10.5fl (7.4-10.4) Neutrophils % 79.5% (39.0-77.0) Lymphocytes % 12.0% (15.0-51.0) Monocytes % 7.2% (0.0-11.0) Eosinophils % 0.0% (0.0-7.0) Basophils % 0.1% (0.0-2.0) Nucleated Red Blood Cells % 0.0/100WBC (0.0-0.0) Neutrophils # 12.310^3/ul (1.6-7.5) Lymphocytes # 1.910^3/ul (0.8-2.9) Monocytes # 1.110^3/ul (0.3-0.9) Eosinophils # 0.010^3/ul (0.0-0.5) Basophils # 0.010^3/ul (0.0-0.1) Nucleated Red Blood Cells # 0.010^3/ul (0.0-0.0) Sodium Level 137mmol/L (135-144) Potassium Level 4.4mmol/L (3.5-5.1) Chloride Level 104mmol/L (97-110) Carbon Dioxide Level 21mmol/L (21-31) Anion Gap 16 (8-16) Blood Urea Nitrogen 13mg/dl (7-20) Creatinine 0.71mg/dl (0.44-1.00) Glucose Level 116mg/dl (70-220) Calcium Level 9.7mg/dl (8.4-10.2) Total Bilirubin 0.6mg/dl (0.2-1.3) Direct Bilirubin 0.00mg/dl (0.00-0.20) Indirect Bilirubin 0.6mg/dl (0-1.1) Aspartate Amino Transf (AST/SGOT) 103IU/L (15-46) Alanine Aminotransferase (ALT/SGPT) 229IU/L (13-69) Alkaline Phosphatase 166IU/L (42-121) Total Protein 8.2g/dl (6.1-8.1) Albumin 4.7g/dl (3.3-4.9) Globulin 3.50g/dl (1.3-3.2) Albumin/Globulin Ratio 1.34 BRENDA LAZAR Apr 24, 2017 15:18
== END 2017-04-24 18:35 | disposition home or self-care (01) | DRG 418 ==
LOC: PP2 03:33
PROVIDERS: ADMIT Internal Medicine; ATTEND Internal Medicine
PROC: 0FC98ZZ Extirpation of Matter from Common Bile Duct, Via Natural or Artificial Opening Endoscopic (ICD-10-PCS; 2017-04-22)
PROC: 0FT44ZZ Resection of Gallbladder, Percutaneous Endoscopic Approach (ICD-10-PCS; principal; 2017-04-23 09:00)
DX: K80.66 Calculus of gallbladder and bile duct with acute and chronic cholecystitis without obstruction (principal); Z68.42 Body mass index [BMI] 45.0-49.9, adult; E66.01 Morbid (severe) obesity due to excess calories
CPT/HCPCS: 71010; 74181; 74330; 80053; 80061; 81001; 83036; 83540; 83735; 84100; 84436; 84443; 84479; 84702; 85025; 88304; 93005; C9113; J0131; J0690; J1100; J2250; J2270; J2405; J2710; J2765; J3010; J7999; Q9967